=== PATIENT | male | born 1955 | race Caucasian/White ===

== ENCOUNTER 2024-11-20 05:48 | Observation (INO) ==
--- NOTE | 2024-09-18 11:50 | PAT Medication Instructions ---
Medication Instructions Date of Service September 18, 2024 Home Medications Medication Instructions Recorded atenolol 100 mg tablet 100 mg PO QAM #90 tabs 04/05/24 tamsulosin 0.4 mg capsule 0.4 mg PO QPM #90 caps 06/12/24 ramipril 5 mg capsule 5 mg PO QAM #90 caps 07/05/24 omega-3 fatty acids-fish oil 435 mg-880 mg capsule (Fish Oil Extra Strength) 1 cap PO HS folic acid 1 mg tablet 1 mg PO QAM atenolol 100 mg tablet 100 mg PO QAM atorvastatin 40 mg tablet 60 mg PO QPM tamsulosin 0.4 mg capsule 0.4 mg PO QPM ramipril 5 mg capsule 5 mg PO QAM ascorbic acid (vitamin C) 500 mg tablet (Vitamin C) 500 mg PO QAM ustekinumab 90 mg/mL subcutaneous syringe (Stelara) 90 mg subcut UD ASK your prescriber and surgeon ustekinumab 90 mg/mL subcutaneous syringe (Stelara) 90 mg subcut UD STOP taking 2 weeks before surgery (or as soon as possible if surgery is within 2 weeks) omega-3 fatty acids-fish oil 435 mg-880 mg capsule (Fish Oil Extra Strength) 1 cap PO HS DO NOT take the morning of surgery folic acid 1 mg tablet 1 mg PO QAM ramipril 5 mg capsule 5 mg PO QAM ascorbic acid (vitamin C) 500 mg tablet (Vitamin C) 500 mg PO QAM Take morning of surgery With a small sip of water, OTHERWISE NOTHING TO EAT OR DRINK AFTER MIDNIGHT: atenolol 100 mg tablet 100 mg PO QAM Take evening before surgery atorvastatin 40 mg tablet 60 mg PO QPM tamsulosin 0.4 mg capsule 0.4 mg PO QPM Other Notes If you have any questions please call us at [phone] or [phone] or [phone] or [phone]
--- NOTE | 2024-09-27 10:31 | Anesthesiology Consultation ---
Date of Service September 27, 2024 Assessment & Plan (1) Encounter for pre-operative examination: Chart Review Chart Review: Acceptable Risk for Surgery and Patient seen in Pre Admission Testing Bilateral TKA (not an OPJ candidate due to procedure due to bilateral TKA) Per PAT appt on 09/27/24, no recent illness/disease exposures, illness related symptoms, or recent illness/disease positive tests. Will leave to surgeon's discretion if preop Covid testing needed Teaching & Discussion Pre-Anesthesia Teaching/Discussion Notes: Instructed NPO after midnight before surgery,except medications with 15 cc of water. Medication instructions provided according to the PAT guidelines. History Surgery Operation Date: 10/20/24 11:00 Proposed Procedures p Total Knee Arthroplasty Bilateral - Luis F Champagne DO Height/Weight Height: 5 ft 7 in Weight: 88.8 kg Allergies Allergy/AdvReac Type Severity Reaction Status Date / Time Penicillins Allergy Severe ANAPHYLAXIS Verified 09/21/24 08:37 Medications Home Medications Medication Instructions Recorded Confirmed Last Taken omega-3 fatty acids-fish oil 435 1 cap PO HS 09/11/19 09/21/24 05/01/24 mg-880 mg capsule (Fish Oil Extra Strength) folic acid 1 mg tablet 1 mg PO QAM 10/18/19 09/21/24 05/01/24 atenolol 100 mg tablet 100 mg PO QAM #90 tabs 04/05/24 09/21/24 05/03/24 atorvastatin 40 mg tablet 60 mg PO QPM 04/24/24 09/21/24 05/02/24 tamsulosin 0.4 mg capsule 0.4 mg PO QPM #90 caps 06/12/24 09/21/24 Unknown ramipril 5 mg capsule 5 mg PO QAM #90 caps 07/05/24 09/21/24 Unknown ascorbic acid (vitamin C) 500 mg 500 mg PO QAM 09/15/24 09/21/24 Unknown tablet (Vitamin C) ustekinumab 90 mg/mL subcutaneous 90 mg subcut UD 09/15/24 09/21/24 Unknown syringe (Stelara) Past Medical History Medical History (Updated 09/28/24 @ 09:05 by Irma Cartwright PA-C) Aneurysm of left common iliac artery - follows with pcp - Dr. Worthington -has had no changes the past few years- "stable" per 7/1/24 PCP record - per 05/26/24 CT "Fusiform dilation of the left common iliac artery measures 2.2 cm. 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 Findings are similar to prior. " (in 2020) Aortic atherosclerosis Bilateral cataracts BPH (benign prostatic hyperplasia) with LUTS- well controlled with Tamsulosin Crohns disease Follows with GI- stable History of anemia History of cataract Chronic - to get extractions in the future Hyperlipidemia Hypertension Lumbar canal stenosis GURU (obstructive sleep apnea) no device Osteoarthritis Peripheral neuropathy bilateral toes r/t spinal stenosis Pre-diabetes no medications Right rotator cuff tear will need surgical repair in future Exercise / Class Metabolic Activity II 4-5 Yardwork/Stairs/Walk up hill (one flight of stairs- no chest pain or SOB ) Past Family History Family History Grandmother (Paternal) Family history of diabetes mellitus Daughter Bowel disease, inflammatory Son Bowel disease, inflammatory Father Myocardial infarction Coronary heart disease Mother Myocardial infarction Coronary heart disease Other Colorectal cancer Hyperlipemia Hypertension No family history of adverse response to anesthesia Denies family history of Ovarian cancer Prostate cancer Breast cancer Lung cancer Past Surgical History Surgical History History of arthroscopy of left knee History of colonoscopy with polypectomy History of hand surgery right hand "vein collapsed" History of lumbar discectomy 2006, right lower side disc, partial disectomy History of tonsillectomy History of tooth extraction History of total left hip replacement History of wisdom tooth extraction Hx of vasectomy Past Anesthesia History No Hx of Anesthesia Complications and No Family Hx of Anesthesia Complications History of PONV No Hx of PONV and No Hx of Motion Sickness Social History Smoking Status: Former smoker Do You Dip or Chew Tobacco: No (quit ) Smoking End Date: Hx Alcohol Use: Yes Alcohol type: beer alcohol intake frequency: other Alcohol Intake Frequency Comment: very rare Hx Substance Use: No substance use type: does not use Review of Systems - 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 No hx of seizures, stroke, CT, apnea/snoring. No hx of blood clots or blood transfusions Physical Exam Vital Signs VITALS BP 138/77 P 53 TEMP 97.8 SP02 99% RESP 16 Constitutional no acute distress ENMT Mouth: + small oral opening; no TMJ clicking Thyromental Distance: > or= 3.5 Finger Breadths (4.0) Mallampati Class: III (smaller mouth) Missing side tooth Neck + limited neck extension (mild) Respiratory normal respiratory effort; no respiratory distress Auscultation: lungs clear to auscultation bilaterally; no wheezes Cardiovascular Rate/Rhythm: regular rate and regular rhythm Heart Sounds: no murmur Vessels: no carotid bruit Musculoskeletal Spine: + pain with cervical ROM (mild stiffness) Extremities: extremities normal to inspection Psychiatric Orientation: alert Lab Results Anesthesia Preop Results Results Anesthesia Widget: WBC 8.68 K/ul (4.8-10.8) 09/27/24 Hgb 11.5 g/dl (14.0-18.0) L 09/27/24 Hct 36.2 % (42.0-52.0) L 09/27/24 Plt 267 K/uL (130-400) 09/27/24 Na 138 mmol/L (136-145) 09/27/24 K 4.6 mmol/L (3.5-5.1) 09/27/24 Cl 107 mmol/L (98-107) 09/27/24 CO2 26 mmol/L (21-32) 09/27/24 BUN 23 mg/dl (6-23) 09/27/24 Creat 0.96 mg/dl (0.6-1.4) 09/27/24 Glucose Level 111 mg/dl (70-99(Fasting)) H 09/27/24 PT 10.3 Seconds (9.0-12.0) 09/27/24 PTT 29 Seconds (21-31) 09/27/24 INR 0.9 (0.9-1.1) 09/27/24 HA1c 6.1 % (4.5-5.6) H 09/27/24 Blood Type A Positive 01/08/25 Antibody Screen NEGATIVE 09/27/24 Testing Laboratory Results - Mild anemia- surgeon's office informed; FYI sent to PCP to follow up at their discretion post op Electrocardiogram Date: 09/27/24 Findings: + SB @ (51bpm) Left axis deviation When compared to EKG from May 28, 2021- no significant change was found per cardio Chest X-Ray Date: 09/27/24 Findings: + NAD FINDINGS: Heart size and pulmonary vasculature are normal. No effusion or consolidation. Stable minimal elevation of the right hemidiaphragm Other Testing Enterography CT 05/26/24= Long segment of acute active inflammatory bowel disease involving the terminal ileum is similar to the prior study. No abscess, fistula or sinus tract identified. No bowel obstruction or pneumoperitoneum. Cholelithiasis. Nonobstructing bilateral nephrolithiasis. Moderate to extensive atherosclerosis of the abdominal aorta. Fusiform dilation of the left common iliac artery measures 2.2 cm. 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 Findings are similar to prior (CT in 2020).
--- NOTE | 2024-11-16 07:32 | History & Physical Report ---
Date of Service November 16, 2024 Assessment & Plan (1) Right knee DJD: We will proceed with bilateral total knee arthroplasties. Postoperatively he will be started on aspirin for DVT prophylaxis and kept overnight in the hospital for postop medical management. He plans to have [facility] home health after discharge. (2) Left knee DJD: History of Present Illness Chief Complaint: Osteoarthritis bilateral knees. Primary Care Provider: Ulisses Worthington DO Allison is a pleasant 69-year-old male who has been dealing with chronic increasing bilateral knee pain. X-rays and clinical exam have been diagnostic for advanced arthritis of both knees. He has been receiving serial injections in our office, but they are no longer helping. He would like to proceed with bilateral knee replacement surgery. . Allergies Allergy/AdvReac Type Severity Reaction Status Date / Time Penicillins Allergy Severe ANAPHYLAXIS Verified 11/13/24 08:10 Home Medications Medication Instructions Recorded Confirmed Type omega-3 fatty acids-fish oil 435 1 cap PO HS 09/11/19 11/13/24 History mg-880 mg capsule (Fish Oil Extra Strength) folic acid 1 mg tablet 1 mg PO QAM 10/18/19 11/13/24 History atenolol 100 mg tablet 100 mg PO QAM #90 tabs 04/05/24 11/13/24 Rx atorvastatin 40 mg tablet 60 mg PO QPM 04/24/24 11/13/24 History tamsulosin 0.4 mg capsule 0.4 mg PO QPM #90 caps 06/12/24 11/13/24 Rx ramipril 5 mg capsule 5 mg PO QAM #90 caps 07/05/24 11/13/24 Rx ascorbic acid (vitamin C) 500 mg 500 mg PO QAM 09/15/24 11/13/24 History tablet (Vitamin C) ustekinumab 90 mg/mL subcutaneous 90 mg subcut UD 09/15/24 11/13/24 History syringe (Stelara) fluticasone fur. 200 mcg-umeclid 1 inh inhalation DAILY 11/13/24 11/13/24 History 62.5 mcg-vilant 25 mcg inhalat.powder (Trelegy Ellipta) Past Med/Surg History Problem List Diarrhea Abdominal pain B12 deficiency Lumbar spondylosis Testicular pain Right knee DJD Left knee DJD Immunocompromised patient Lower urinary tract symptoms (LUTS) Crohn's ileocolitis Right rotator cuff tear Lumbar canal stenosis (Acute) Pre-diabetes borderline - no medications > diet control Aneurysm of left common iliac artery monitors with Dr Sparks > last checked approx 2 yrs, no changes over the years per pt Aortic atherosclerosis Anemia History of colon polyps History of total left hip replacement Hypertension Hyperlipidemia Medical History Hx of colonic polyps GURU (obstructive sleep apnea) no device History of cataract Chronic - to get extractions in the future History of anemia Pre-diabetes no medications Lumbar canal stenosis Aortic atherosclerosis Aneurysm of left common iliac artery - follows with pcp - Dr. Worthington -has had no changes the past few years- "stable" per 03/20/24 PCP record - per 05/26/24 CT "Fusiform dilation of the left common iliac artery measures 2.2 cm. 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 Fusiform dilation with chronic dissection of the mid ward perior mesenteric artery also noted measuring up to 1.2 cm. Findings are similar to prior. " (in 2020) Bilateral cataracts Right rotator cuff tear will need surgical repair in future - sees dr. copeland- had mri Hypertension Hyperlipidemia Peripheral neuropathy bilateral toes r/t spinal stenosis BPH (benign prostatic hyperplasia) with LUTS- well controlled with Tamsulosin Osteoarthritis Crohns disease Follows with GI- stable Surgical History History of total left hip replacement History of hand surgery right hand "vein collapsed" History of arthroscopy of left knee History of lumbar discectomy (2006) 2006, right lower side disc, partial disectomy Hx of vasectomy History of colonoscopy with polypectomy History of tooth extraction History of wisdom tooth extraction History of tonsillectomy Family History Grandmother (Paternal) Family history of diabetes mellitus Daughter Bowel disease, inflammatory Son Bowel disease, inflammatory Father Myocardial infarction Coronary heart disease Mother Myocardial infarction Coronary heart disease Other Colorectal cancer Hyperlipemia Hypertension No family history of adverse response to anesthesia Denies family history of Ovarian cancer Prostate cancer Breast cancer Lung cancer Social History Smoking Status: Former smoker Tobacco Type: Cigarettes Age Started Using Tobacco: 17; Age Quit Using Tobacco: 27; packs per day: 0.05; Second Hand Exposure: No; Do You Dip or Chew Tobacco: No; Hx Alcohol Use: No Hx Substance Use: No Preferred Language: Persian Communication Ability: Effective Visual Impairment: Limited Hearing Ability: Normal Bellows Tester Required: No Beliefs That Will Affect Care: Catholic Catholic Beliefs: rastafari marital status: Current Living Situation: Spouse Current Living Situation Comment: and son current occupational status: employed and retired current occupation: [employer] / [employer] How many Children do You have: 3 Feels Safe at Home: Yes Childhood Exposure to Second-Hand Smoke: No Diet: regular caffeine: Yes Dental Care, Regularly: Yes Physical Activity Frequency: Daily Physical Activity Frequency Comment: walking Seatbelt Use: always Sunscreen Use: Yes Assistive Devices: Glasses Review of Systems All systems reviewed & are unremarkable except as noted in HPI & below. Physical Exam On physical exam of both knees, he has a varus deformity. He has tenderness palpation of the distal medial femoral condyles and over the medial joint lines.. Constitutional WD/WN, vitals as above Eyes PERRL, conjunctivae normal, anicteric sclerae ENMT external ear and nose normal, oropharynx normal Neck trachea midline, no thyromegaly Respiratory normal respiratory effort Cardiovascular RRR, no murmur, no edema Gastrointestinal (Abdomen) normal bowel sounds, soft, nontender, no hepatosplenomegaly Psychiatric A+Ox3, euthymic affect Results & Data Results & Data Laboratory Results . Diagnostic Findings X-rays of both knees show advanced osteoarthritis with joint space narrowing, osteophyte summation, and [id number] articulation. PG Care Time/CCT Total # of Minutes Spent Total Time Spent with Patient: Total time spent is greater than 50% in coordination of care (as documented) at patient's floor/unit and/or counseling patient: Coding Level of Care Code None Diagnoses Right knee DJD M17.11 Left knee DJD M17.12
[~2024-11-20 05:48] MED LIST: ACETAMINOPHEN 500 MG TAB PO SCH; ALLERGY Noted to ORDERED Medication SCH; FAMOTIDINE 20 MG TAB PO SCH; GABAPENTIN 300 MG CAP PO SCH; LR 500ML BOLUS, THEN 15ML/HR IV SCH; LR 60ML/HR IV SCH; ROPIV 0.5% 246mg, Ketorolac 30mg, EPINEPHrine 0.5mg in NSS INFIL SCH; TRANEXAMIC ACID 1,000 MG **IV Intra-op IV SCH; TRANEXAMIC ACID 1,000 MG **IV Pre-op IV SCH; dexAMETHasone**PF** 10 MG/ML VIAL IV SCH
[2024-11-20] MEDS ORDERED: Nursing to Pharmacy Communication SCH (06:00)
[2024-11-20] MEDS: LR 500ML BOLUS, THEN 15ML/HR IV SCH (06:10)
[2024-11-20] MEDS: ACETAMINOPHEN 500 MG TAB PO SCH ×2 (06:19→13:36)
[2024-11-20] MEDS: dexAMETHasone**PF** 10 MG/ML VIAL IV SCH (06:20)
[2024-11-20] MEDS: LR 60ML/HR IV SCH (06:20)
[2024-11-20] MEDS: GABAPENTIN 300 MG CAP PO SCH (06:20)
[2024-11-20] MEDS: FAMOTIDINE 20 MG TAB PO SCH (06:20)
[2024-11-20] MEDS ORDERED: BUPIVACAINE 0.25% PF 30 ML VIAL ONE (06:27)
[2024-11-20] MEDS ORDERED: BUPIVACAINE 0.5 % 5 MG/1 ML PF 10ML VIAL ONE (06:27)
[2024-11-20] MEDS ORDERED: PROPOFOL IV EMULSION 10 MG/ML 20 ML VIAL IV ONE (06:37)
--- NOTE | 2024-11-20 06:38 | History & Physical Bridge Note ---
Date of Service November 20, 2024 History & Physical Bridge Note I have examined the patient, reviewed the History & Physical and in the interval since the performance of the History & Physical I have noted the following changes of clinical significance: no changes noted
[2024-11-20] MEDS ORDERED: MIDAZOLAM HCL 1 MG/ML 2ML VIAL ONE (06:40)
[2024-11-20] MEDS: TRANEXAMIC ACID 1,000 MG **IV Pre-op IV SCH (06:54)
[2024-11-20] MEDS ORDERED: ePHEDrine sulfate 50 MG/ML AMP IV PRN (07:06)
[2024-11-20] MEDS ORDERED: ONDANSETRON INJ 2 MG/ML 2 ML VIAL IV PRN ×2 (07:06→10:39)
[2024-11-20] MEDS ORDERED: ATROPINE SULFATE 0.1 MG/ML 10ML SYR IV PRN (07:06)
[2024-11-20] MEDS ORDERED: fentaNYL citrate PF 100 MCG/2 ML VIAL IV PRN (07:06)
[2024-11-20] MEDS: ceFAZolin 2000MG 2,000 MG/15 ML SYR IV SCH (07:06)
[2024-11-20] MEDS ORDERED: GLYCOPYRROLATE 0.2 MG/ML VIAL ONE (07:15)
[2024-11-20] MEDS ORDERED: KETAMINE HCL 10MG/ML SYR ONE (07:16)
[2024-11-20] MEDS: ORTHO JOINT ANESTHETIC ONE (07:48)
[2024-11-20] MEDS: ROPIV 0.5% 246mg, Ketorolac 30mg, EPINEPHrine 0.5mg in NSS INFIL SCH (07:48)
[2024-11-20] MEDS ORDERED: ONDANSETRON INJ 2 MG/ML 2 ML VIAL ONE (07:54)
[2024-11-20] MEDS ORDERED: PHENYLEPHRINE HCL 10 MG/ML VIAL ONE (08:07)
[2024-11-20] MEDS ORDERED: ePHEDrine sulfate 50 MG/ML AMP ONE (08:23)
[2024-11-20] MEDS: TRANEXAMIC ACID 1,000 MG **IV Intra-op IV SCH (09:00)
--- NOTE | 2024-11-20 09:01 | Operative Report ---
PG Post Operative Report Pre & Post Diagnosis Operation Date: 11/20/24 07:00 Pre-Op Diagnosis: Degenerative Joint Disease Bilateral Knees Post-Op Diagnosis: Degenerative Joint Disease Bilateral Knees I identified the patient and participated in the time-out.: Yes Procedure Operation Date: 11/20/24 07:00 Actual Procedures p Bilateral Total Knee Arthroplasty(Bilateral) - Luis F Champagne DO Surgeon Luis F Champagne DO Prison Guard Supervisor Brayan Hinds PA-C Estimated Blood Loss 100 Findings Consistent with Post-Op Diagnosis Specimens Bilateral femoral and tibial bone Description of Procedure Allison arrived [facility] for the above procedure. He was seen in the preoperative holding area and both knees were identified and signed. He was given a preoperative antibiotic, TXA, a spinal anesthetic and adductor nerve blocks. He was taken back to the operating room and laid on the table in supine position. He was given basic sedation. Both knees were then prepped and draped in sterile fashion. A timeout was done, and the patient and the operative extremities were properly identified. Right knee implants used: I used a Mel Persona total knee arthroplasty system with a size 9 standard PS femur, F tibia, 34 oval patella, and a size 12 CPS polyethylene bearing. All components were cemented in place with Palacos G cement. A midline incision was made directly over the patella. Dissection was taken down to the extensor mechanism. A medial parapatellar arthrotomy was used. The medial retinaculum was released and the fat pad was mostly excised. The knee was flexed and the ACL, PCL, and meniscus were removed. A drill was sent down the center of the femoral canal followed by an int ramedullary jose. Off that jose a distal femoral cutting block was placed. 9 mm was resected off the distal femur at 5 of valgus. A posterior referencing AP sizing guide was then placed on the distal femur. The femur measured to be a size 9. 2 drill holes were placed in 3 of external rotation. A 4-in-1 cutting block was then impacted into place. Anterior, posterior, and chamfer cuts were then made. The proximal tibia was then exposed. An external tibial alignment guide was placed. A tibial cut guide was then anchored in place and the proximal tibia was then resected. The posterior aspect of the knee was then opened up and any additional meniscus fragments and osteophytes were removed. The tibia measured to be a size F. The tibial plate was then placed in the appropriate rotation and the tibia was drilled and punched. Trial components were then placed. I used a size 12 CPS polyethylene insert. The knee was brought through a full range of motion and felt to be stable. The peg holes for the femur were then drilled. The patella was then everted and 9 mm was resected off the posterior aspect of the patella. The patella measured to be a size 34 oval. 3 peg holes were then drilled. A trial patella was placed. The knee was once again brought through a full range of motion and felt to be stable. Trial components were then removed. The surrounding soft tissues were injected with 50 cc of an orthopedic pain control cocktail. All components were then cemented into place with Palacos G cement. The final polyethylene insert was then snapped into place. Once cement was dry the tourniquet was deflated. Hemostasis was obtained. A dilute betadyne lavage was then done for 3 minutes. The joint was then irrigated with normal saline solution. The medial parapa tellar arthrotomy was then closed with #1 Vicryl suture. The skin was closed with 2-0 Vicryl, 3-0V lock suture, and marley. A Silverlon and a soft compressive dressing were placed. Left knee implants used: I used a Mel Persona total knee arthroplasty system with a size 7 femur, F tibia, 34 oval patella, and a size 12 CPS polyethylene bearing. All components were cemented in place with Palacos G cement. A midline incision was made directly over the patella. Dissection was taken down to the extensor mechanism. A medial parapatellar arthrotomy was used. The medial retinaculum was released and the fat pad was mostly excised. The knee was flexed and the ACL, PCL, and meniscus were removed. A drill was sent down the center of the femoral canal followed by an intramedullary jose. Off that jose a distal femoral cutting block was placed. 9 mm was resected off the distal femur at 5 of valgus. A posterior referencing AP sizing guide was then placed on the distal femur. The femur measured to be a size 7. 2 drill holes were placed in 3 of external rotation. A 4-in-1 cutting block was then impacted into place. Anterior, posterior, and chamfer cuts were then made. The proximal tibia was then exposed. An external tibial alignment guide was placed. A tibial cut guide was then anchored in place and the proximal tibia was then resected. The posterior aspect of the knee was then opened up and any additional meniscus fragments and osteophytes were removed. The tibia measured to be a size F. The tibial plate was then placed in the appropriate rotation and the tibia was drilled and punched. Trial components were then placed. I used a size 12 CPS polyethylene insert. The knee was brought through a full range of motion and felt to be stable. The peg holes for the femur were then drilled. The patella was then everted and 9 mm was resected off the posterior aspect of the patella. The patella measured to be a size 34 oval. 3 peg holes were then drilled. A trial patella was placed. The knee was once again brought through a full range of motion and felt to be stable. Trial components were then removed. The surrounding soft tissues were injected with 50 cc of an orthopedic pain control cocktail. All components were then cemented into place with Palacos G cement. The final polyethylene insert was then snapped into place. Once cement was dry the tourniquet was deflated. Hemostasis was obtained. A dilute betadyne lavage was then done for 3 minutes. The joint was then irrigated with normal saline solution. The medial parapatellar arthrotomy was then closed with #1 Vicryl suture. The skin was closed with 2-0 Vicryl, 3-0V lock suture, and marley. A Silverlon and a soft compressive dressing were placed. He was then transferred to a hospital bed and taken to the postanesthesia care unit in stable condition. He tolerated the procedure well. Brayan Hinds PA-C, was present for the entire procedure. He was critical for patient positioning, prepping, draping, retraction exposure, wound closure and application of sterile dressing. I attest to the content of the Intraoperative Record and any orders documented therein. Any exceptions are noted below.
--- NOTE | 2024-11-20 09:49 | XRay Report ---
XR knee LT 1 or 2V routine CLINICAL HISTORY: Surgical Post Op COMPARISON: None FINDINGS: Left knee prosthesis shows no hardware complication. There is expected soft tissue gas. Sk in marley are present. There are multiple small soft tissue calcifications posteriorly. IMPRESSION: Unremarkable postoperative exam. ACT 112: Negative or not required by law. Electronically signed by: Noe Corley M.D. 11/20/2024 9:48 AM
--- NOTE | 2024-11-20 09:50 | XRay Report ---
XR knee RT 1 or 2V routine CLINICAL HISTORY: Surgical Post Op COMPARISON: None FINDINGS: Right knee prosthesis shows no hardware complication. There is expected soft tissue gas. S kin marley are present. IMPRESSION: Unremarkable postoperative exam. ACT 112: Negative or not required by law. Electronically signed by: Noe Corley M.D. 11/20/2024 9:48 AM
[2024-11-20] MEDS ORDERED: MAGNESIUM HYDROXIDE SUSP 30 ML UDC PO PRN (10:39)
[2024-11-20] MEDS ORDERED: bisacodyL 10 MG SUPP PR PRN (10:39)
[2024-11-20] MEDS ORDERED: NALOXONE HCL 0.4 MG/1 ML VIAL/CARP IV PRN (10:39)
[2024-11-20] MEDS ORDERED: METOCLOPRAMIDE HCL INJ 5 MG/ML 2 ML VIAL IV PRN (10:39)
[2024-11-20] MEDS ORDERED: HYDROmorphone INJ 0.5 MG/0.5 ML SYR IV PRN (10:39)
[2024-11-20] MEDS: KETOROLAC TROMETHAMINE 15 MG/ML VIAL IV SCH (11:10)
--- NOTE | 2024-11-20 12:12 | Anesthesiology Progress Note ---
Date of Service November 20, 2024 Anesthesia Post Procedure Vital Signs Vital Signs: Temp Pulse Pulse Resp BP Pulse Ox O2 Del Method 11/20/24 11:20 36.3 C L 51 L 16 145/79 H 99 Room Air 11/20/24 10:50 36.3 C L 59 L 16 122/69 100 Room Air 11/20/24 10:05 54 L 17 114/69 93 Room Air 11/20/24 09:50 36.4 C L 62 15 118/73 94 Room Air 11/20/24 09:40 62 15 115/77 100 Oxymask 11/20/24 09:30 69 22 133/77 100 Oxymask 11/20/24 09:24 36.3 C L 67 17 111/73 99 Oxymask 11/20/24 05:54 36.8 C 57 L 20 145/72 H 97 Room Air O2 Flow Rate 11/20/24 11:20 11/20/24 10:50 11/20/24 10:05 11/20/24 09:50 11/20/24 09:40 4 11/20/24 09:30 6 11/20/24 09:24 6 11/20/24 05:54 Pain Intensity Bilateral Knee: Pain Intensity: 4 Transfer of Care Handoff Completed per policy Notes Mental Status: alert / awake / arousable Patient Amnestic to Procedure: Yes Nausea / Vomiting: adequately controlled Pain: adequately controlled Airway Patency, RR, SpO2: stable & adequate BP & HR: stable & adequate Hydration State: stable & adequate Neuraxial Anesthesia: was administered and sensory block is resolving Anesthetic Complications: no major complications apparent and Pt Satisfied with anesthetic care
[2024-11-20] MEDS: ceFAZolin 1000MG 1,000 MG/7.5 ML SYR IV SCH (17:02)
[2024-11-20] MEDS: TAMSULOSIN HCL 0.4 MG CAP PO SCH (20:26)
[2024-11-20] MEDS: DOCUSATE SODIUM 100 MG CAP PO SCH (20:26)
[2024-11-20] MEDS: ATORVASTATIN 20 MG TAB PO SCH (20:26)
[2024-11-20] MEDS: ASPIRIN 81 MG ECTAB PO SCH (20:26)
[2024-11-20] MEDS: SENNA 8.6 MG TAB PO SCH (20:26)
[2024-11-21 07:10] VITALS: BP 126/73; PULSE 70; RESP 16; TEMP 97.7; O2SAT 95
[2024-11-21] MEDS: FLUTICASONE FUROATE 200MCG 14 PUFFS/INHALER INH SCH (07:43)
[2024-11-21] MEDS: UMECLIDINIUM/VILANTEROL 62.5/25MCG 7 PUFFS/INHALER INH SCH (07:43)
[2024-11-21] MEDS: ENALAPRIL MALEATE 10 MG TAB PO SCH (07:44)
[2024-11-21] MEDS: ATENOLOL 50 MG TABLET PO SCH (07:44)
[2024-11-21] MEDS: dexAMETHasone 4 MG TAB PO SCH (07:44)
[2024-11-21] MEDS: MULTIVITAMIN TAB PO SCH (07:45)
[2024-11-21] MEDS: oxyCODONE HCL IR 5 MG TAB (IMMEDIATE RELEASE) PO PRN (07:46)
[2024-11-21] MEDS ORDERED: NON-FORMULARY MEDICATION (Fluticasone-Umeclidin-Vilanter [Trelegy Ellipta] 200-62.5-25 mcg INH SCH (09:00)
--- NOTE | 2024-11-21 09:26 | Orthopedic Progress Note ---
Date of Service November 21, 2024 Assessment & Plan (1) Status post bilateral knee replacements: Assessment: Bilateral total knee arthroplasty. Plan: Overall, he is doing quite well today with good pain control to his bilateral knees. He will work with physical therapy later this morning to work on ambulation and range of motion exercises. He was started on aspirin for DVT prophylaxis. He can be discharged home later this morning pending formal physical therapy evaluation and recommendations. Dressing can be changed prior to discharge today with the use of ALPHONSE hoses and ABDs. He will follow-up with orthopedics in 2 weeks for continued postoperative management or sooner if needed. He verbalized understanding and agrees with this plan. Subjective . Allison was seen and evaluated this morning resting comfortably in no apparent distress. He notes that his bilateral knees are feeling quite well today. He has been up and ambulating with no significant issues. He has yet to work physical therapy today. Denies any concerns with surgical incision sites. Denies any active bleeding, discharge, or signs of infection. He denies any other concerns today. Review of Systems All systems reviewed & are unremarkable except as noted in HPI & below. Physical Exam . On physical examination of bilateral knees, dressings are clean, dry, and intact. No active bleeding, discharge, or signs of infection. His legs are out in full extension. He has limited range of motion secondary to postoperative stiffness soreness. Calfs are soft and nontender to palpation. Negative Homans' sign. Intact plantarflexion dorsiflexion bilaterally. +2 DP and PT pulses. Less than 2-second capillary refill. Normal sensation. Neurovascular intact. Results & Data Results & Data Laboratory Results . Diagnostic Findings . Knee X-Ray 11/20/24 09:27 XR knee LT 1 or 2V routine CLINICAL HISTORY: Surgical Post Op COMPARISON: None FINDINGS: Left knee prosthesis shows no hardware complication. There is expected soft tissue gas. Skin marley are present. There are multiple small soft tissue calcifications posteriorly. IMPRESSION: Unremarkable postoperative exam. ACT 112: Negative or not required by law. Electronically signed by: Noe Corley M.D. 11/20/2024 9:48 AM Knee X-Ray 11/20/24 09:27 XR knee RT 1 or 2V routine CLINICAL HISTORY: Surgical Post Op COMPARISON: None FINDINGS: Right knee prosthesis shows no hardware complication. There is expected soft tissue gas. Skin marley are present. IMPRESSION: Unremarkable postoperative exam. ACT 112: Negative or not required by law. Electronically signed by: Noe Corley M.D. 11/20/2024 9:48 AM PG Care Time/CCT Total # of Minutes Spent Total Time Spent with Patient: Total time spent is greater than 50% in coordination of care (as documented) at patient's floor/unit and/or counseling patient: Coding Level of Care Code 86450 Post Operative Follow-Up Diagnoses Status post bilateral knee replacements Z96.653
--- NOTE | 2024-11-21 09:28 | Discharge Summary ---
Date of Service November 21, 2024 Admission HPI (Per Admitting) Allison is a pleasant 69-year-old male who has been dealing with chronic increasing bilateral knee pain. X-rays and clinical exam have been diagnostic for advanced arthritis of both knees. He has been receiving serial injections in our office, but they are no longer helping. He would like to proceed with bilateral knee replacement surgery. . Admission Exam (Per Admitting) On physical exam of both knees, he has a varus deformity. He has tenderness palpation of the distal medial femoral condyles and over the medial joint lines.. Principal Diagnosis Same as "Discharge Diagnosis" noted below under Discharge Instructions. Discharge Exam . On physical examination of bilateral knees, dressings are clean, dry, and intact. No active bleeding, discharge, or signs of infection. His legs are out in full extension. He has limited range of motion secondary to postoperative stiffness soreness. Calfs are soft and nontender to palpation. Negative Homans' sign. Intact plantarflexion dorsiflexion bilaterally. +2 DP and PT pulses. Less than 2-second capillary refill. Normal sensation. Neurovascular intact. Discharge Data Procedures Performed Operation Date: 11/20/24 07:00 Actual Procedures p Bilateral Total Knee Arthroplasty(Bilateral) - Luis F Champagne DO Ordered Studies 11/20/24 05:00 US - OR guided needle placemen Routine Hospital Course (1) Status post bilateral knee replacements: On November 20, [address] [facility] and underwent a bilateral total knee arthroplasties performed by Dr. Champagne with no complications. He had a spinal anesthetic. Postoperatively, he was started on aspirin for DVT prophylaxis and transferred to the general orthopedic floor in stable condition. His hospital course was uneventful. On postoperative day #1, his vital signs were stable and his pain was well-controlled. He participated well with physical therapy working on ambulation and range of motion exercises. He was then discharged home in stable condition. He will follow-up with orthopedics in 2 weeks for continued postoperative management or sooner if needed. PG Care Time/CCT Total # of Minutes Spent Total Time Spent with Patient: Total time spent is greater than 50% in coordination of care (as documented) at patient's floor/unit and/or counseling patient: Discharge Plan Discharge Items Patient Disposition: Home - Self-Care Reason For Visit: Bilateral Knee Arthritis Discharge Diagnosis: Bilateral knee replacements Activity: Per Instructions section Non-emergency contact: Surgeon Call non-emergency contact if: your wound has increased redness and your wound has increased drainage Follow-up/Referrals: Ulisses Worthington DO [Primary Care Provider] - Diet: Regular Addtl Attending Provider Instructions: Activity and Therapy Recommendations: * If you are using [facility] then therapy will be provided at your home until they feel you have accomplished all of your goals. * If you are using [facility] then Physical Therapy will be provided until they feel you are ready to start Outpatient Physical Therapy. * If you are not using home therapy then Outpatient Physical Therapy should start about 3-5 days from your day of surgery. Therapy will last about 6-10 weeks * It is important not to put a pillow under your knee when you are relaxing or sleeping. It is just as important to make sure you are getting your knee perfectly straight as it is to regain your knee bend. * You were shown a series of exercises in the hospital. Do these exercises three times each day including the exercises you were shown in physical therapy. * Get up and walk several times each day. For the first four weeks, try not to stand or walk for more than one hour at a time. If you do stand or walk for more than one hour, you will not hurt anything, but your leg will likely swell. * As you feel comfortable, you may change from the walker or crutches to a cane and then to independent walking. Medications: * Narcotic You will likely be sent home from the hospital with a prescription for the narcotic pain medication that worked best throughout your stay. * Cefadroxil -take the antibiotic twice a day for 10 days to help prevent infection. * Aspirin Most patients will be required to take Aspirin 81mg twice a day for 6 weeks after surgery. This is obtained [id number] and a prescription is not necessary. * Other medications may be prescribed for specific circumstances. If you have any questions, please call the office at . * Resume previous home medications unless otherwise instructed TEDs/Elastic Stockings: The white elastic stockings help limit swelling and prevent blood clots from forming in your legs.~ The more you wear them, the more they work. Wear them for six weeks. Dressing Care: The dressing can be changed after physical therapy on postop day #1. Daily dry dressing changes for a few days, especially if the incision is still draining some. If the incision is not draining then you may leave the marley open to air. If there is a little bit of drainage or if the marley are getting stuck on your clothing then cover the incision with a dry dressing. The marley will be removed at your 2 week follow-up appointment. Showering: You may shower 5 days from the day of surgery as long as the incision is no longer draining. You may shower with the marley exposed. Let soapy water run over the marley and pat them dry. Do not scrub or soak the incision. Diet: You may resume your previous diet. Things To Watch For: * Drainage from the incision site that occurs more than one week after your surgery. * Increased redness at the incision site. * Fever above 102 degrees Fahrenheit. * Unusual chest pain or shortness of breath. * Call [facility] at with any of the above problems Follow-Up Visit: Follow-up with Dr. Champagne's office 2-3 weeks after your day of surgery. We will remove your marley and answer any questions. If you have any additional questions or concerns, Dr Champagne is usually in the office at the same time and will be available An appointment was probably scheduled when you signed-up for surgery in the office. If you have any questions call Office Instructions: More detailed instructions as well as Frequently Asked Questions were provided in a folder by our office when you signed-up for surgery. Please review these instructions when you get home. If you have any further questions or concerns, please feel free to call the office at [phone] Pending Studies at Discharge: No Stand-Alone Forms: [facility], Sm[facility] Cessation Medications and DC Order Prescriptions: New cefadroxil 500 mg capsule 500 mg PO BID 10 Days Qty: 20 0RF oxycodone 5 mg tablet 5 mg PO Q6H PRN (Reason: pain) Qty: 30 0RF aspirin 81 mg Tablet,Delayed Release (Dr/Ec) 81 mg PO BID 42 Days Qty: 0 0RF Continued atenolol 100 mg tablet 100 mg PO QAM Qty: 90 3RF tamsulosin 0.4 mg capsule 0.4 mg PO QPM Qty: 90 3RF ramipril 5 mg capsule 5 mg PO QAM Qty: 90 3RF Rx Instructions: take 1 capsule by mouth once daily Fish Oil Extra Strength 435-880 mg capsule 1 cap PO HS folic acid 1 mg Tablet 1 mg PO QAM ascorbic acid (vitamin C) [Vitamin C] 500 mg Tablet 500 mg PO QAM Stelara 90 mg/mL syringe 90 mg subcut UD Rx Instructions: INJECT 90 MG UNDER THE SKIN EVERY 8 WEEKS Trelegy Ellipta 200-62.5-25 mcg Blister With Device 1 inh INHALATION DAILY atorvastatin 40 mg tablet 60 mg PO QPM Discharge Orders: Discharge Order (Routine); Ordered 11/21/24 Ordered By: Janusz Hinds Admission Data Admit Date/Time: 11/20/24 09:27 Attending Provider: Luis F Champagne Admit Provider: Luis F Champagne Primary Care Provider: Ulisses Worthington Other Providers: [facility]
== END 2024-11-21 11:46 | disposition home health service (06) ==
LOC: 3E 05:48 → ASU 05:48